=== PATIENT | female | born 1970 ===

== ENCOUNTER 2024-11-01 09:02 | Inpatient (IN) | payer MEDICARE ==
[~2024-11-01] VITALS: Wt 65.3 kg
[2024-11-01] MEDS ORDERED: LORA.5 (15:23)
[2024-11-01] MEDS ORDERED: CARB200ER PO (15:23)
[2024-11-01] MEDS ORDERED: ALBU90OI INH (15:24)
[2024-11-01] MEDS ORDERED: DiphenhydrAMINE HCl 50 MG/ML 1ML Vial IM PRN (15:30)
[2024-11-01] MEDS ORDERED: Haloperidol Lactate Inj. 5 MG/ML Injection IM PRN (15:30)
[2024-11-01] MEDS ORDERED: Aluminum Hydroxide 320MG/5ML 473 ML PO PRN (15:30)
[2024-11-01] MEDS ORDERED: Ondansetron 4 MG SoluTab MM PRN (15:35)
[2024-11-01] MEDS ORDERED: Polyethylene Glycol 3350 17 gm PO PRN (15:40)
--- NOTE | 2024-11-01 18:20 | NUR ---
SHIFT SUMMARY NO ACUTE EVENTS SINCE ADMIT. PT DENIES SI, HI, AVTH. AT THIS TIME. C/O OF ANXIETY AT START, BUT IS NOW IN DAYROOM SOLVING PUZZLE AND INTERACTING W/ PEERS. PT'S PHARMACY CALLED FOR MEDICATION LIST AND NONE RECONCILED D/T PRESCRIPTIONS BEING OR NOT HAVING BEEN PICKED UP SINCE FEBRUARY.
[2024-11-01 19:07] VITALS: BP 134/93
--- NOTE | 2024-11-02 04:28 | NUR ---
SHIFT SUMMARY: PATIENT WAS HAVING HER DINNER IN THE DINING AREA AT THE BEGINNING OF THE SHIFT. SHE WAS THE FIRST PATIENT TO FINISH, AND CAME OUT TO WALK SLOWLY UP AND DOWN THE BENEDICT REPEATEDLY. SHE WAS FRIENDLY AND COOPERATIVE WITH CARES. SHE WAS ABLE TO ANSWER ECHOCARDIOGRAPH TECHNICIAN QUESTIONS IN A FAIRLY REASONABLE AND LINEAR MANNER. SHE DENIED SUICIDAL IDEATION, THOUGHTS OF SELF HARMING AND A/V/T HALLUCINATIONS. SHE PARTICIPATED IN SNACK BUT DECLINED WRAP UP GROUP. SHE WAS INTERACTING WELL WITH HER ROOMMATE, AND WAS EDUCATED REGARDING POSSIBILITIES FOR PRN SLEEP MEDICATIONS, WHICH SHE DECIDED AGAINST USING. SHE WENT TO BED AND WAS NOTED TO BE RESTING QUIETLY WITH EYES CLOSED AND REPSIRATIONS CONFIRMED FOR THE REMAINDER OF THE SHIFT, WITH A FEW WAKEFUL PERIODS NOTED DURING ROUNDS. CONTINUING TO MONITOR FOR SAFETY WITH Q15 MINUTE CHECKS.
[2024-11-02 07:00] LABS: CHOL/HDL RATIO 4.1; Cholesterol 224 mg/dL (50-200); HDL Cholesterol 55 mg/dL (>39); LDL/HDL RATIO 2.8; Low Density Lipoprotein Chol 152 mg/dL (0-110); Triglycerides 84 mg/dL (30-160); Very Low Density Lipoprot Chol 16 mg/dL (6-32)
[2024-11-02 07:50] VITALS: BP 112/77
[2024-11-02] MEDS ORDERED: Multivitamins 1 Tab PO SCH (09:00)
[2024-11-02] MEDS ORDERED: Albuterol HFA200 ACT/6.7 GM INH INH PRN (10:50)
--- NOTE | 2024-11-02 17:55 | NUR ---
SHIFT SUMMARY NO ACUTE EVENTS TODAY. PT DENIES SI, HI, AVTH. WENT TO GROUPS, MEALS, AND HAS BEEN DOING PUZZLES IN DAYROOM. ENDORSES HAVING "STRESS" ABOUT "THINGS AT HOME", STATES ITS "COMPLICATED" WHEN ASKED TO ELABORATE.
[2024-11-02 19:29] VITALS: BP 131/86
--- NOTE | 2024-11-03 04:42 | NUR ---
SHIFT SUMMARY: PATIENT WAS IN THE DINING ROOM EATING DINNER AT THE BEGINNING OF THE SHIFT. SHE CAME OUT AFTERWARD AND WAS MOSTLY OUT ON THE PATIO READING. SHE WAS ABLE TO ANSWER ADMINISTRATIVE SUPPORT MANAGER QUESTIONS IN A MOSTLY LOGICAL AND LINEAR MANNER. SHE PRESENTED PLEASANT AND SOMEWHAT SHY. SHE SPENT TIME IN HER ROOM READING. SHE DENIED SUICIDAL IDEATION, THOUGHTS OF SELF HARMING AND A/V/T HALLUCINATIONS. SHE WAS COMPLIANT WITH EVENING MEDICATIONS AND PARTICIPATED IN SNACK AND WRAP UP GROUP AT 2030. SHE WENT BACK TO HER ROOM AND WAS READING ON HER BED, THEN RESTING WITH EYES CLOSED FOR MOST OF THE SHIFT, ALTHOUGH SHE GOT UP AT TIMES TO CHECK THE CLOCK. CONTINUING TO MONITOR FOR SAFETY WITH Q15 MINUTE CHECKS.
[2024-11-03 08:50] VITALS: BP 128/83
--- NOTE | 2024-11-03 18:28 | NUR ---
SHIFT SUMMARY PT REFUSED MEDS THIS AM, BUT AFTER TALKING TO DR ROGER SAYS SHE'LL "TRY" TO TAKE MEDS TONIGHT (PER DR BARRIOS NOTE). DENIES SI, HI, AVTH. DID PUZZLES, WENT TO GROUPS, ATE MEALS. PLAYED JULIAN W/ PEERS.
[2024-11-03 19:53] VITALS: BP 119/79
--- NOTE | 2024-11-04 05:09 | NUR ---
SHIFT SUMMARY: PATIENT WAS QUIETLY LURKING IN THE MILIE[place] AT THE BEGINNING OF THE SHIFT. SHE DID STOP AND TALK WITH RN, AND WAS ABLE TO ANSWER ASSESSMENT QUESTIONS. SHE PRESENTS SHY AND SOFT SPOKEN. SHE DENIED SUICIDAL IDEATION, THOUGHTS OF SELF HARMING AND A/V/T HALLUCINATIONS. SHE DID PARTICIPATE IN SNACK AND WRAP UP GROUP AT 2030. SHE READ IN HER ROOM A LOT, BECAUSE IT WAS TOO HOT FOR PATIO TIME. SHE WAS COMPLIANT WITH HER EVENING MEDICATIONS BUT HAD SOME PERTINENT QUESTIONS REGARDING THEM. DESPITE MEDICATION HELP, SHE HAD A HARD TIME SLEEPING CONSISTENTLY, STATING THAT HER ROOMMATE "KEEPS SOUNDING LIKE HER BREATHING HAS STOPPED". SHE DID GET SOME REST AND WAS NOTED AT LEAST HALF OF CHECKS TO BE RESTING QUIETLY WITH EYES CLOSED AND RESPIRATIONS CONFIRMED. CONTINUING TO MONITOR FOR SAFETY WITH Q15 MINUTE CHECKS.
[2024-11-04 09:05] VITALS: BP 125/87
--- NOTE | 2024-11-04 18:01 | NUR ---
SHIFT SUMMARY NO ACUTE EVENTS TODAY. DENIES SI, HI, AVTH. STATES SHE "ACTUALLY FEELING BETTER". WAS HESITANT TO TAKE MEDICATION THIS AM, BUT TOOK THE CARBAMEZEPING. REFUSED MULTIVITAMIN. HAS BEEN INTERACTING W/ PEERS AND STAFF.
[2024-11-04 19:18] VITALS: BP 109/75
--- NOTE | 2024-11-05 04:36 | NUR ---
SHIFT SUMMARY PATIENT UP IN MIL[place], WORKING ON PUZZLE, ATTEMPTING SMALL CONVERSATIONS WITH PEERS AND STAFF. DENIES SI, HI, OR AVH. COOPERATIVE WITH SCHEDULED MEDICATIONS. PATIENT AWAKE AT 0130 AFTER BEING AWOKEN BY ROOMMATE REQUESTING SOMETHING TO HELP HER SLEEP. PATIENT AGREEING TO TRY MELATONIN. PATIENT APPEARS TO BE SLEEPING WELL AT THIS TIME RESP EVEN AND UNLABORED. CONTINUE TO MONITOR Q15MIN
[2024-11-05 08:51] VITALS: BP 120/82
--- NOTE | 2024-11-05 17:47 | NUR ---
SHIFT SUMMARY PT AxOx4. PLEASANT AND COOPERATIVE WITH CARE. PT REPORTS FEELING "EMOTIONAL TODAY," ALSO STATING SHE "DOESN'T KNOW WHY." PT REPORTS FEELING "MAYBE A LITTLE" BETTER WHEN ASKED HOW SHE FEELS COMPARED TO WHEN SHE CAME TO THE U. SHE REPORTED THE SAME SENTIMENT IN REGARDS TO HER NEW MEDICATION- "IT MIGHT BE HELPING A LITTLE." SHE REPORTED POOR SLEEP LAST NOC. PT'S ATTITUDE SEEMS AVOIDANT DURING ASSESSMENT, WITH LITTLE ENGAGEMENT IN CONVERSATION. SHE DENIED SI/HI AND AVTH. SHE HAS BEEN FOLLOWING HER TREATMENT PLAN INCLUDING TAKING HER MEDICATION (TEGRETOL ONLY), ATTENDING ALL MILIE[place] THERAPY GROUPS AND MINGLING APPROPRIATELY WITH PEERS/STAFF, ALTHOUGH SHE SEEMS SHY AND STILL HAS LIMITED INTERACTION. PROVIDER ORDERED NEW MEDICATION TO BE STARTED TONIGHT. NO CURRENT DC PLAN AT THIS TIME. PT IS ON AN INVOLUNTARY HOLD, THAT EXPIRES ON 11/07/24 OUT OF [facility]. PT IS CURRENTLY STANDING IN GROUP ROOM, COLORING ON COLORING DINING ROOM COORDINATOR. DENIES ANY NEEDS AT THIS TIME.
[2024-11-05 20:41] VITALS: BP 113/76
--- NOTE | 2024-11-06 04:32 | NUR ---
SHIFT SUMMARY patient is alert and oriented times four. She is pleasant with staff, although very difficult for her to make eye contact with this RN during assessment. Denies SI,HI and AVTH, but states she is exhausted from lack of sleep. Explained that she would be trying Geodon at HS and that it should help her relax and hopefully sleep a little better. Will continue close observation every 15 minutes for comfort and safety. So far, it appears she has slept through the night.
[2024-11-06 07:18] VITALS: BP 98/70
--- NOTE | 2024-11-06 17:40 | NUR ---
SHIFT SUMMARY ASSUMED PT CARE AT 1130. PT IS AA&O TO PERSON, PLACE, AND SITUATION. SHE IS PLEASANT AND COOPERATIVE WITH CARE. MOOD IS CONSTRICTED AFFECT IS CONGRUENT. SHE HAS BEEN UP FOR GROUPS BUT QUIET. SHE ANSWERS QUESTIONS WITH SHORT RESPONSES. SHE DOES REPORTS GOOD SLEEP AND THAT SHE IS FEELING BETTER. SHE SPENT MOST OF HER FREE TIME IN HER ROOM BUT DOES COME OUT AND WALK THE BENEDICT OCCASIONALY. SHE DENIES SI, AVH. WILL CONTINUE POC
--- NOTE | 2024-11-07 04:30 | NUR ---
SHIFT SUMMARY Patient is alert and oriented times four. She spent a brief time coloring in the day room before coming out into the santo and pacing in the halls. She had a sad affect during assessment but denied SI,HI and AVTH. Around 0300, she got up to walk the halls for a brief time, then went back to bed, but was still awake in bed around 0400. Will continiue close monitoring every 15 inutes for comfort and safety
[2024-11-07 07:10] VITALS: BP 106/71
--- NOTE | 2024-11-07 17:22 | NUR ---
SHIFT SUMMARY NO ACUTE EVENTS TODAY. PT DENIES SI, HI, AVTH. WENT TO GROUPS, MEALS, AND HAS BEEN DOING PUZZLES/PACING DURING REC TIME. TOOK MEDICATIONS ORDERED (EXCEPT VITAMINS). WHEN ASKED HOW MOOD IS, PT STATED, "ALRIGHT".
[2024-11-07 19:20] VITALS: BP 131/88
--- NOTE | 2024-11-07 22:32 | NUR ---
MID SHIFT SUMMARY Patient is alert and oriented times four. she denied SI,HI and AVTH during evening assessment. Safety plan was completed with her during assessment. Keeps to herself while out in the milieu. Usually colors or works on a puzzle. Will report off to oncoming RN and continue close monitoring every 15 minutes for comfort and safety
--- NOTE | 2024-11-08 04:04 | NUR ---
END OF SHIFT UPDATE ASSUMED CARE OF PT AT 2300. NO ACUTE CHANGES. Q15 MINUTE CHECKS TO CONTINUE PER PT SAFETY/UNIT PROTOCOL.
[2024-11-08 07:12] VITALS: BP 120/83
--- NOTE | 2024-11-08 16:22 | NUR ---
SHIFT SUMMARY NO ACUTE EVENTS TODAY. DENIES SI, HI, AVTH. ASKED IF IT WAS OK TO SKIP GROUPS. ENCOURAGED TO GO AND PT WENT TO ALL GROUPS, DID PUZZLES, AND ATE MEALS. CONTINUES TO INTERMITTENTLY PACE HALLS AND IS GUARDED, BUT PLEASANT AND COOPERATIVE OTHERWISE.
[2024-11-08 20:05] VITALS: BP 126/82
--- NOTE | 2024-11-09 04:30 | NUR ---
SHIFT SUMMARY: PATIENT WAS PACING IN THE HALLWAY AT THE BEGINNING OF THE SHIFT. SHE ANSWERED DOUGH BRAKER QUESTIONS WITH SHORT ONE OR TWO WORD ANSWERS. SHE SPENT SOME TIME IN THE DAY ROOM WORKING ON A PUZZLE. SHE DENIED SUICIDAL IDEATION, THOUGHTS OF SELF HARMING, AND A/V/T HALLUCINATIONS. SHE STATED, "I WAS TOLD BY SOMEONE HERE THAT I HAVE A BED. CAN YOU HELP ME WITH THAT?" SHE ELABORATED THAT ANOTHER PATIENT TOLD HER SHE COULD "CRASH ON THEIR COUCH" BUT THAT PATIENT IS GONE. RN REPLIED THAT WE DO NOT INTERFERE IN PERSONAL RELATIONSHIPS, BUT SHE CAN CONTACT THE PERSON IF SHE HAS THE INFORMATION. SHE MUMBLED, "SOME THINGS NEVER CHANGE AROUND HERE". SHE PARTICIPATED IN SNACK AND WRAP UP GROUP AT 2030. SHE WAS COMPLIANT WITH EVENING MEDICATIONS, AND LATER TOOK A VISTARIL AFTER ASKING MULTIPLE QUESTIONS ABOUT IT. WHEN SHE WAS REMINDED THAT SHE HAD TAKEN ONE A FEW DAYS BEFORE, SHE DECIDED TO GO AHEAD, AND IT WAS QUITE EFFECTIVE, WITH HER RESTING QUIETLY WITH EYES CLOSED AND RESPIRATIONS CONFIRMED FOR THE REMAINDER OF THE SHIFT. CONTINUING TO MONITOR FOR SAFETY WITH Q15 MINUTE CHECKS. PATIENT IS SET TO DISCHARGE TODAY, 11/09/24.
[2024-11-09] MEDS ORDERED: CARB200 PO (07:36)
[2024-11-09] MEDS ORDERED: ZIPR20 PO (07:37)
--- NOTE | 2024-11-09 07:50 | NUR ---
IMPORTANT DISCHARGE INFORMATION PATIENT TO BE DISCHARGED TODAY. SHE WILL HAVE A FAITH MEMBER COME AND PICK HER UP AROUND 2PM. SIA NERI , HER DAUGHTER JOHN CAN ALSO BE REACHED WITH ANY QUESTIONS OR CONCERNS AT . PCP FOLLOW UP WITH DR. CHANTEL PINA ON 11/16/24 AT 11:05AM. PHARMACY: [facility] [employer] FAX: OR PHONE
[2024-11-09 08:37] VITALS: BP 126/85
--- NOTE | 2024-11-09 09:21 | NUR ---
SHIFT ASSESSMENT: PT DENIED SI, HI AND AVH. SHE ENDORSED ANXIETY, "I HAVE A NORMAL DAY TO DAY AMOUNT OF ANXIETY." SHE RATED HER FOOT AND BACK PAIN 4/10w AND DECLINED TO TAKE ANYTHING FOR PAIN. PT DESCRIBED HER MOOD, "I'M UNSURE...HOPEFUL THAT EVERYTHING GOES OK." PT HAS BEEN PACING THE HALLS THIS MORNING. SHE IS PLEASANT AND COOPERATIVE WITH CARE.
--- NOTE | 2024-11-09 14:27 | NUR ---
DISCHARGE- PATIENT DISCHARGED AT 1426 TODAY. SHE SIGNED ALL DISCHARGE PAPERWORK AND UNDERSTANDS HER DISCHARGE PLAN. PATIENT WAS PICKED UP BY A FRIEND. HER BELONGINGS WERE RETURNED. PATIENT IS BEING BROUGHT BACK TO HER HOME, WITH AFTERCARE APPOINTMENTS ESTABLISHED.
--- NOTE | 2024-11-09 14:46 | NUR ---
PT RECIVED AND SIGNED FOR THEIR BELOGGINS BEING RETURNED ALONG WITH STAFF SIGNING
== END 2024-11-09 14:26 | disposition home or self-care (01) | DRG 885 ==
LOC: BHU 09:02
PROVIDERS: ADMIT Psychiatry & Neurology Psychiatry
DX: F31.4 Bipolar disorder, current episode depressed, severe, without psychotic features (principal); R45.851 Suicidal ideations; Z60.2 Problems related to living alone; Z88.8 Allergy status to other drugs, medicaments and biological substances; Z79.899 Other long term (current) drug therapy; Z79.1 Long term (current) use of non-steroidal anti-inflammatories (NSAID)
CPT/HCPCS: 36415; 80061; 83036; A9270